=== PATIENT | male | born 1995 | race Caucasian/White ===

== ENCOUNTER 2019-01-01 06:33 | Emergency (ER) | payer OTHER ==
[~2019-01-01] VITALS: Ht 180.3 cm; Wt 109.1 kg
[2019-01-01] MEDS ORDERED: IBUP-1022 PO (07:42)
[2019-01-01] MEDS ORDERED: CYCL5TAB PO (07:42)
[2019-01-01] MEDS ORDERED: IBUPROFEN 600 MG TAB PO ONE (07:45)
[2019-01-01] MEDS ORDERED: CYCLOBENZAPRINE 5MG TABLET PO ONE (07:45)
--- NOTE | 2019-01-01 07:51 | REP ---
Clinical: Trauma with thoracic pain. Technique: AP, lateral, and swimmers views. Findings: Alignment and kyphosis is maintained. Vertebral bodies intact. No acute fracture / compression injury or subluxation. No degenerative changes. Paravertebral soft tissues are normal. Impression: Normal thoracic spine series. Electronically Signed by Victorino Mckinley MD 01/01/2019 07:42 A
[2019-01-01 08:13] VITALS: BP 125/83
== END 2019-01-01 08:14 | disposition home or self-care (01) ==
LOC: M ED 06:33
DX: S20.229A Contusion of unspecified back wall of thorax, initial encounter (principal); W18.09XA Striking against other object with subsequent fall, initial encounter; Y92.9 Unspecified place or not applicable; Y99.0 Civilian activity done for income or pay

== ENCOUNTER → 2021-03-01 | Outpatient (REF) | payer OTHER ==
[~2021-03-01] MED LIST: CYCL5TAB PO; IBUP-1022 PO
[2021-03-01 13:04] LABS: RSV AMPLIFICATION NEGATIVE (NEGATIVE)
== END ==
LOC: M WUC 10:55
PROVIDERS: ATTEND Physician Assistant
DX: R50.9 Fever, unspecified (principal)

== ENCOUNTER → 2021-08-11 | Outpatient (REF) | payer OTHER | LOC: M LAB REF 14:43 | PROVIDERS: ATTEND Physician Assistant | DX: R42 Dizziness and giddiness (principal) ==